=== PATIENT | female | born 1950 | race Two or more races ===

== ENCOUNTER 2021-02-09 07:17 | Day surgery (SDC) | payer OTHER ==
[~2021-02-09 07:17] MED LIST: CLONAZEPAM1 M1 PO; EFFEXOR XR75 MG PO; PRILOSEC OTC20 MG PO; ZESTRIL5 MG PO
== END 2021-02-09 18:30 | disposition home or self-care (01) ==
LOC: CIR.AMB 07:17 → EDSEX 08:45 → CIR.AMB 17:00
PROVIDERS: ATTEND Orthopaedic Surgery Hand Surgery
DX: S52.531A Colles' fracture of right radius, initial encounter for closed fracture (principal); Z20.822 Contact with and (suspected) exposure to COVID-19
CPT/HCPCS: 25609; C1776; 25118; 25280

== ENCOUNTER 2021-12-07 06:24 | Day surgery (SDC) | payer OTHER ==
[~2021-12-07] VITALS: Ht 162.6 cm; Wt 76.2 kg
== END 2021-12-07 14:35 | disposition home or self-care (01) ==
LOC: CIR.AMB 06:24
PROVIDERS: ATTEND Orthopaedic Surgery Hand Surgery
DX: M24.531 Contracture, right wrist (principal); Z20.822 Contact with and (suspected) exposure to COVID-19; Z91.013 Allergy to seafood; Z88.0 Allergy status to penicillin; Z88.6 Allergy status to analgesic agent